=== PATIENT | female | born 1980 | race Caucasian/White ===

== ENCOUNTER 2016-10-18 08:08 | Day surgery (SDC) | payer MEDICAID ==
[2016-10-18] MEDS ORDERED: HYDROmorphone 2 MG/ML SDV IVPUSH ONE ×2 (08:36→09:49)
[2016-10-18] MEDS ORDERED: Ondansetron 4 MG/2 ML SDV IVPUSH ONE (08:36)
[2016-10-18] MEDS ORDERED: Sodium Chloride 0.9% 1,000 ML IV ONE (08:36)
[2016-10-18] MEDS ORDERED: Pantoprazole 40 MG in Sodium Chloride 0.9% 100 ML IV ONE (08:37)
--- NOTE | 2016-10-18 08:41 | EDM.PDOC ---
ED HPI GENERAL MEDICAL PROBLEM - General Stated Complaint: STOMACH PAIN Time Seen by Provider: 10/18/16 08:08 Source of Information: Reports: Patient History Limitations: Reports: Other (abd. pain) - History of Present Illness INITIAL COMMENTS - FREE TEXT/NARRATIVE: 36 years old w f -s/p hysterectomy-came to the ed due to N/V and right upper abd.pain in the past 3 days. Her urine looks like "beer", dark. No trauma. No dizziness or light headedness. Pt had several episodes like that in the past, drinks ETOH seldom. Last ETOH ago a few days ago. No other acute medical issues. Onset: Unknown/Unsure Onset Date: 10/15/16 Onset Time: 07:00 Duration: Day(s):, Intermittent Location: Reports: Abdomen Quality: Reports: Ache, Burning, Dull Improves with: Reports: Rest Worsens with: Reports: Eating Associated Symptoms: Reports: Nausea/Vomiting abdominal & back Pain Score (Numeric/FACES): 6 - Related Data Allergies Allergy/AdvReac Type Severity Reaction Status Date / Time codeine Allergy Insomnia Verified 10/18/16 08:40 diphenhydramine HCl Allergy Agitation Verified 10/18/16 08:40 [From Benadryl] metoclopramide HCl Allergy Agitation Verified 10/18/16 08:40 [From Reglan] Penicillins Allergy Vomiting Verified 10/18/16 08:40 prochlorperazine edisylate Allergy Agitation Verified 10/18/16 08:40 [From Compazine] prochlorperazine maleate Allergy Agitation Verified 10/18/16 08:40 [From Compazine] Home Meds: Home Meds FLUoxetine HCl [Prozac] 40 mg PO DAILY 10/18/16 [History] Past Medical History - Past Health History Medical/Surgical History: Denies Medical/Surgical History - Past Surgical History Female Surgical History: Reports: Tubal Ligation Social & Family History - Tobacco Use Smoking Status *Q: Current Every Day Smoker Years of Tobacco use: 1 Packs/Tins Daily: 0.5 - Alcohol Use Days Per Week of Alcohol Use: 0 - Recreational Drug Use Recreational Drug Use: No ED ROS GENERAL - Review of Systems Review Of Systems: See Below Constitutional: Reports: No Symptoms HEENT: Reports: No Symptoms Respiratory: Reports: No Symptoms Cardiovascular: Reports: No Symptoms Endocrine: Reports: No Symptoms GI/Abdominal: Reports: Abdominal Pain (RUQ of abdomen) : Reports: Other (dark urine) Musculoskeletal: Reports: No Symptoms Skin: Reports: No Symptoms Neurological: Reports: No Symptoms Psychiatric: Reports: No Symptoms Hematologic/Lymphatic: Reports: No Symptoms Immunologic: Reports: No Symptoms ED EXAM, GI/ABD - Physical Exam Exam: See Below Exam Limited By: Physical Impairment General Appearance: Alert, WD/WN, Moderate Distress, Obese Eyes: Bilateral: Normal Appearance Ears: Normal External Exam Nose: Normal Inspection Throat/Mouth: Other (dry mucosal membrane) Head: Atraumatic, Normocephalic Neck: Normal Inspection, Supple, Non-Tender, Full Range of Motion Respiratory/Chest: No Respiratory Distress, Lungs Clear, Normal Breath Sounds Cardiovascular: Normal Peripheral Pulses, Regular Rate, Rhythm, No Edema GI/Abdominal Exam: Tender (RUQ of abdomen and epigastric, less so.) (Female) Exam: Deferred Rectal (Female) Exam: Deferred Back Exam: Normal Inspection, Full Range of Motion Extremities: Normal Inspection, Normal Range of Motion Neurological: Alert, Oriented, CN II-XII Intact, Normal Cognition, Normal Gait Psychiatric: Normal Affect, Normal Mood Skin Exam: Warm, Dry, Intact, Normal Color, No Rash Lymphatic: No Adenopathy Course - Vital Signs Text/Narrative:: 36 years old w f -s/p hysterectomy-came to the ed due to N/V and right upper abd.pain in the past 3 days. Her urine looks like "beer", dark. No trauma. No dizziness or light headedness. Pt had several episodes like that in the past, drinks ETOH seldom. Last ETOH ago a few days ago. No other acute medical issues. PE: RUQ abd. pain with N/V. Pain radiating to the back, dark colored urine for 3 days. Imaging: Limited US of abdomen: mild sludge in GB, official report is pending Labs: WBC and BMP, LFT were basically nl Impression: RUQ abd. pain, Dehydration, Gastritis. Tx: NS, Zofran, Dilaudid and protonix 40 mg i.v. (Pt stated, she is not allergic to Dilaudid) Consultation: Dr. Polo, Surgeon: Will arrange HIDA scan with RAD and will call back. Recommends to give pt pain and nausea meds and hydrate her well. Reexam: Improved, pt requested to gallbladder to be removed Plan: Cholecyst ectomy, Dr. Lerma took over the care, Last Recorded V/S: Last Vital Signs Temp 36.6 C 10/18/16 12:45 Pulse 57 L 10/18/16 12:45 Resp 16 10/18/16 13:30 BP 118/75 10/18/16 13:30 Pulse Ox 96 10/18/16 13:30 - Orders/Labs/Meds Orders: Active Orders 24 hr Category Date Time Status Patient Status [ADT] Routine ADT 10/18/16 10:52 Active Communication Order [RC] ASDIRECTED Care 10/18/16 11:13 Active Cooling Warming Measures [RC] ASDIRECTED Care 10/18/16 11:13 Active Notify Provider [RC] PRN Care 10/18/16 11:13 Active Oxygen Therapy [RC] ASDIRECTED Care 10/18/16 11:13 Active Patient to Empty Bladder [RC] ASDIRECTED Care 10/18/16 10:52 Active Ready for Discharge [RC] PER UNIT ROUTINE Care 10/18/16 12:42 Active Verify Patient Consent Obtain [RC] ASDIRECTED Care 10/18/16 10:52 Active Vital Signs [RC] PER UNIT ROUTINE Care 10/18/16 11:13 Active Nothing Per Oral Diet [DIET] Diet 10/18/16 Lunch Ordered Abdomen Ltd [US] Stat Exams 10/18/16 08:34 Taken HCG QUALITATIVE,URINE [URCHEM] Stat Lab 10/18/16 10:52 Uncollected Albuterol [Proventil Neb Soln] Med 10/18/16 11:13 Active 2.5 mg NEB ONETIME PRN HYDROmorphone [Dilaudid] Med 10/18/16 11:13 Active 0.2 mg IV Q10M PRN HYDROmorphone [Dilaudid] Med 10/18/16 11:13 Active 0.2 mg IVPUSH Q10M PRN Lactated Ringers [Ringers, Lactated] 1,000 ml Med 10/18/16 11:00 Active IV ASDIRECTED Lactated Ringers [Ringers, Lactated] 1,000 ml Med 10/18/16 11:15 Active IV ASDIRECTED Sodium Chloride 0.9% [Normal Saline] 1,000 ml Med 10/18/16 10:15 Active IV ASDIRECTED Sodium Chloride 0.9% [Saline Flush] Med 10/18/16 10:52 Active 10 ml FLUSH ASDIRECTED PRN fentaNYL [Sublimaze] Med 10/18/16 11:13 Active 50 mcg IVPUSH Q5M PRN Peripheral IV Insertion Adult [OM.PC] Routine Oth 10/18/16 10:52 Ordered Sequential Compression Device [OM.PC] Routine Oth 10/18/16 10:52 Ordered Resuscitation Status Routine Resus Stat 10/18/16 10:52 Ordered Medication Orders Albuterol (Proventil Neb Soln) 2.5 mg NEB ONETIME PRN PRN Reason: Wheezing Fentanyl (Sublimaze) 50 mcg IVPUSH Q5M PRN PRN Reason: Pain (severe 7-10) Hydromorphone HCl (Dilaudid) 0.2 mg IVPUSH Q10M PRN PRN Reason: Pain (moderate 4-6) Hydromorphone HCl (Dilaudid) 0.2 mg IV Q10M PRN PRN Reason: Pain (severe 7-10) Last Admin: 10/18/16 13:05 Dose: 0.2 mg Sodium Chloride (Normal Saline) 1,000 mls @ 999 mls/hr IV ASDIRECTED CLAUDETTE Last Admin: 10/18/16 10:38 Dose: 999 mls/hr Lactated Ringer's (Ringers, Lactated) 1,000 mls @ 125 mls/hr IV ASDIRECTED CLAUDETTE Lactated Ringer's (Ringers, Lactated) 1,000 mls @ 0 mls/hr IV ASDIRECTED CLAUDETTE PRN Reason: KVO Sodium Chloride (Saline Flush) 10 ml FLUSH ASDIRECTED PRN PRN Reason: Keep Vein Open Labs: Laboratory Tests 10/18/16 10/18/16 10/18/16 Range/Units 08:36 08:36 08:36 WBC 7.9 (4.5-12.0) X10-3/uL RBC 5.19 (3.23-5.20) x10(6)uL Hgb 14.7 (11.5-15.5) g/dL Hct 44.3 (30.0-51.3) % MCV 85.4 (80-96) fL MCH 28.2 (27.7-33.6) pg MCHC 33.1 (32.2-35.4) g/dL RDW 12.6 (11.5-15.5) % Plt Count 300 (125-369) X10(3)uL MPV 8.5 (7.4-10.4) fL Neut % (Auto) 57.3 (46-82) % Lymph % (Auto) 33.3 (13-37) % Evangeline % (Auto) 5.8 (4-12) % Eos % (Auto) 3 (1.0-5.0) % Baso % (Auto) 1 (0-2) % Neut # (Auto) 4.5 (1.6-8.3) # Lymph # (Auto) 2.6 (0.6-5.0) # Evangeline # (Auto) 0.5 (0.0-1.3) # Eos # (Auto) 0.2 (0.0-0.8) # Baso # (Auto) 0.1 (0.0-0.2) # Sodium 138 (135-145) mmol/L Potassium 3.6 (3.5-5.3) mmol/L Chloride 103 (100-110) mmol/L Carbon Dioxide 29 (23-29) mmol/L BUN 13 (5-20) mg/dL Creatinine 0.8 (0.6-1.3) mg/dL Est Cr Clr Drug Dosing 85.56 mL/min Estimated GFR (MDRD) > 60 (>60) BUN/Creatinine Ratio 16.3 (9-20) Glucose 79 L (80-116) mg/dL Calcium 9.2 (8.6-10.2) mg/dL Total Bilirubin 0.4 (0.1-1.3) mg/dL Direct Bilirubin 0.1 (0.1-0.2) mg/dL AST 19 (5-27) IU/L ALT 15 (14-26) IU/L Alkaline Phosphatase 55 L (56-112) IU/L Total Protein 7.8 (6.0-8.0) g/dL Albumin 4.4 (3.5-5.2) g/dL Amylase 20 L (28-100) U/L Urine Color (YELLOW) Urine Appearance (CLEAR) Urine pH (5.0-6.5) Ur Specific [place] (1.010-1.025) Urine Protein (NEGATIVE) mg/dL Urine Glucose (UA) (NEGATIVE) mg/dL Urine Ketones (NEGATIVE) mg/dL Urine Occult Blood (NEGATIVE) Urine Nitrite (NEGATIVE) Urine Bilirubin (NEGATIVE) Urine Urobilinogen (NEGATIVE) mg/dL Ur Leukocyte Esterase (NEGATIVE) Urine RBC (0) Urine WBC (0) Ur Squamous Epith Cells (NS,R,O) Urine Bacteria (NS) Ethyl Alcohol (<0.01) % 10/18/16 10/18/16 Range/Units 08:36 08:45 WBC (4.5-12.0) X10-3/uL RBC (3.23-5.20) x10(6)uL Hgb (11.5-15.5) g/dL Hct (30.0-51.3) % MCV (80-96) fL MCH (27.7-33.6) pg MCHC (32.2-35.4) g/dL RDW (11.5-15.5) % Plt Count (125-369) X10(3)uL MPV (7.4-10.4) fL Neut % (Auto) (46-82) % Lymph % (Auto) (13-37) % Evangeline % (Auto) (4-12) % Eos % (Auto) (1.0-5.0) % Baso % (Auto) (0-2) % Neut # (Auto) (1.6-8.3) # Lymph # (Auto) (0.6-5.0) # Evangeline # (Auto) (0.0-1.3) # Eos # (Auto) (0.0-0.8) # Baso # (Auto) (0.0-0.2) # Sodium (135-145) mmol/L Potassium (3.5-5.3) mmol/L Chloride (100-110) mmol/L Carbon Dioxide (23-29) mmol/L BUN (5-20) mg/dL Creatinine (0.6-1.3) mg/dL Est Cr Clr Drug Dosing mL/min Estimated GFR (MDRD) (>60) BUN/Creatinine Ratio (9-20) Glucose (80-116) mg/dL Calcium (8.6-10.2) mg/dL Total Bilirubin (0.1-1.3) mg/dL Direct Bilirubin (0.1-0.2) mg/dL AST (5-27) IU/L ALT (14-26) IU/L Alkaline Phosphatase (56-112) IU/L Total Protein (6.0-8.0) g/dL Albumin (3.5-5.2) g/dL Amylase (28-100) U/L Urine Color Yellow (YELLOW) Urine Appearance Clear (CLEAR) Urine pH 6.5 (5.0-6.5) Ur Specific [place] 1.015 (1.010-1.025) Urine Protein Negative (NEGATIVE) mg/dL Urine Glucose (UA) Normal (NEGATIVE) mg/dL Urine Ketones Negative (NEGATIVE) mg/dL Urine Occult Blood Trace (NEGATIVE) Urine Nitrite Negative (NEGATIVE) Urine Bilirubin Negative (NEGATIVE) Urine Urobilinogen 4 H (NEGATIVE) mg/dL Ur Leukocyte Esterase Negative (NEGATIVE) Urine RBC 0-5 (0) Urine WBC 0-5 (0) Ur Squamous Epith Cells Moderate H (NS,R,O) Urine Bacteria Few H (NS) Ethyl Alcohol < 0.01 (<0.01) % Meds: Medications Generic Name Dose Route Start Last Admin Trade Name Freq PRN Reason Stop Dose Admin Albuterol 2.5 mg 10/18/16 11:13 Proventil Neb Soln NEB ONETIME PRN Wheezing Fentanyl 50 mcg 10/18/16 11:13 Sublimaze IVPUSH Q5M PRN Pain (severe 7-10) Hydromorphone HCl 0.2 mg 10/18/16 11:13 Dilaudid IVPUSH Q10M PRN Pain (moderate 4-6) Hydromorphone HCl 0.2 mg 10/18/16 11:13 10/18/16 13:05 Dilaudid IV 0.2 mg Q10M PRN Administration Pain (severe 7-10) Sodium Chloride 1,000 mls @ 999 mls/hr 10/18/16 10:15 10/18/16 10:38 Normal Saline IV 999 mls/hr ASDIRECTED CLAUDETTE Administration Lactated Ringer's 1,000 mls @ 125 mls/hr 10/18/16 11:00 Ringers, Lactated IV ASDIRECTED CLAUDETTE Lactated Ringer's 1,000 mls @ 0 mls/hr 10/18/16 11:15 Ringers, Lactated IV ASDIRECTED CLAUDETTE KVO Sodium Chloride 10 ml 10/18/16 10:52 Saline Flush FLUSH ASDIRECTED PRN Keep Vein Open Discontinued Medications Generic Name Dose Route Start Last Admin Trade Name Sergio PRN Reason Stop Dose Admin Hydrocodone Bitart/Acetaminophen 1 tab 10/18/16 13:44 [place] 325-5 Mg PO 10/18/16 13:45 ONETIME ONE Hydromorphone HCl 0.5 mg 10/18/16 08:36 10/18/16 09:06 Dilaudid IVPUSH 10/18/16 08:37 0.5 mg ONETIME ONE Administration Hydromorphone HCl 1 mg 10/18/16 09:49 10/18/16 09:56 Dilaudid IVPUSH 10/18/16 09:50 1 mg ONETIME ONE Administration Sodium Chloride 1,000 mls @ 999 mls/hr 10/18/16 08:36 10/18/16 09:04 Normal Saline IV 10/18/16 09:36 999 mls/hr .BOLUS ONE Administration Pantoprazole Sodium 40 mg/ 100 mls @ 200 mls/hr 10/18/16 08:37 10/18/16 09:12 Sodium Chloride IV 10/18/16 09:06 200 mls/hr .BOLUS ONE Administration Ondansetron HCl 8 mg 10/18/16 08:36 10/18/16 09:09 Zofran IVPUSH 10/18/16 08:37 8 mg ONETIME ONE Administration Departure - Departure Time of Disposition: 11:00 Disposition: Admitted As Inpatient 68 Condition: Fair Clinical Impression: Abdominal pain Qualifiers: Abdominal location: upper abdomen, unspecified Qualified Code(s): R10.10 - Upper abdominal pain, unspecified - Discharge Information - My Orders Last 24 Hours: My Active Orders 10/18/16 08:34 [employer] [US] Stat 10/18/16 10:15 Sodium Chloride 0.9% [Normal Saline] 1,000 ml IV ASDIRECTED - Assessment/Plan Last 24 Hours: My Active Orders 10/18/16 08:34 [employer] [[place]] Stat 10/18/16 10:15 Sodium Chloride 0.9% [Normal Saline] 1,000 ml IV ASDIRECTED
[2016-10-18] MEDS ORDERED: Sodium Chloride 0.9% 1,000 ML IV SCH (10:15)
[2016-10-18] MEDS ORDERED: Sodium Chloride 0.9% 10 ML Syringe FLUSH PRN (10:52)
[2016-10-18] MEDS ORDERED: Lactated Ringers 1,000 ML IV SCH ×2 (11:00→11:15)
--- NOTE | 2016-10-18 11:11 | PREOP ---
ADMISSION DATE: 10/18/2016 HISTORY: This is a 36-year-old female who was seen in the emergency room for evaluation of abdominal pain. She has had severe right upper quadrant abdominal pain since yesterday. She also has similar episode couple of months ago and was found to have gallstones on ultrasound. The pain symptoms resolved at that time and did not have surgery. She has been nauseated but no vomiting. She has not had any fever, sweats, or chills. Ultrasound was obtained which shows small stones and sludge and positive Han sign. No wall thickening or pericholecystic fluid is seen. LABORATORY DATA: Evaluation revealed a normal CBC. Liver function tests were normal. Urinalysis was normal. PAST MEDICAL HISTORY: Anxiety, robotic-assisted hysterectomy, and section. MEDICATIONS: Reviewed. MEDICAL ALLERGIES: Reviewed. REVIEW OF SYSTEMS: The patient denies chest pain, shortness of breath, or respiratory difficulties. Denies dysphagia but has been nauseated and poor appetite the last couple of days. Bowels have been normal. No urinary symptoms. Denies fever, sweats, or chills. PHYSICAL EXAMINATION: GENERAL: Reveals a pleasant lady, in no acute distress as long as she is lying still. VITAL SIGNS: Her vitals are reviewed. She is afebrile. HEENT: Her sclerae are white. Skin is not jaundiced. LUNGS: Clear. Respirations are nonlabored. HEART: Regular rate and rhythm without murmur. ABDOMEN: Has right upper quadrant tenderness with guarding. Recent incisions are well healed. No hernias are palpable. ASSESSMENT: Symptomatic cholelithiasis and cholecystitis. PLAN: Findings were reviewed with the patient. We recommend proceeding with laparoscopic cholecystectomy. This will be done today and anticipate doing this as an outpatient procedure. Risks and complications of bleeding, infection, anesthesia, bile leakage of bile duct injury, and needing to convert to an open procedure were discussed and an informed consent obtained. /[id number] MARLEN/BENITO
[2016-10-18] MEDS ORDERED: fentaNYL 100 MCG/2 ML SDV IVPUSH PRN (11:13)
[2016-10-18] MEDS ORDERED: HYDROmorphone 2 MG/ML SDV IVPUSH PRN (11:13)
[2016-10-18] MEDS ORDERED: HYDROmorphone 2 MG/ML SDV IV PRN (11:13)
[2016-10-18] MEDS ORDERED: Albuterol 0.083% 2.5 MG/3 ML Neb Soln NEB PRN (11:13)
[2016-10-18] MEDS ORDERED: fentaNYL 100 MCG/2 ML SDV IV ONE (11:45)
[2016-10-18] MEDS ORDERED: Lactated Ringers 1,000 ML IV ONE (11:45)
[2016-10-18] MEDS ORDERED: Dexamethasone 4 MG/ML 5 ML MDV IVPUSH ONE (11:45)
[2016-10-18] MEDS ORDERED: Rocuronium 50 MG/5 ML Vial IV ONE (11:45)
[2016-10-18] MEDS ORDERED: Scopolamine 1.5 MG Transdermal Patch TOP ONE (11:45)
[2016-10-18] MEDS ORDERED: HYDROmorphone 2 MG/ML SDV IV ONE (11:45)
[2016-10-18] MEDS ORDERED: Propofol 200 MG/20 ML SDV IV ONE (11:45)
[2016-10-18] MEDS ORDERED: Ketorolac 30 MG/ML SDV IVPUSH ONE (11:45)
[2016-10-18] MEDS ORDERED: Succinylcholine/Normal Saline 200 MG/10 ML Syringe IV ONE (11:45)
[2016-10-18] MEDS ORDERED: Midazolam 1 MG/ML 2 ML SDV IV ONE (11:45)
[2016-10-18] MEDS ORDERED: Neostigmine Methylsulfate 1 MG/ML 5 ML Syringe IV ONE (11:45)
--- NOTE | 2016-10-18 12:39 | PCM.OPNOTE ---
- General Post-Op/Procedure Note Date of Surgery/Procedure: 10/18/16 Operative Procedure(s): Lap Aiyana Pre Op Diagnosis: Cholecystitis and Cholelithiasis Post-Op Diagnosis: Same Anesthesia Technique: General ET Tube Primary Surgeon: Faraz Casas Anesthesia Provider: Leoncio Hodges Pathology: Gallbladder EBL in mLs: 5 Complications: None Condition: Good
[2016-10-18] MEDS ORDERED: Acetaminophen/HYDROcodone 325-5 MG Tab PO ONE (13:44)
--- NOTE | 2016-10-18 14:03 | OR ---
DATE OF OPERATION: 10/18/2016 SURGEON: Faraz Casas MD PREOPERATIVE DIAGNOSIS: Cholecystitis and cholelithiasis. POSTOPERATIVE DIAGNOSIS: Cholecystitis and cholelithiasis. PROCEDURE: Laparoscopic cholecystectomy. ETHICS OFFICER: None. ANESTHESIA: General. PROCEDURE: The patient was brought to the operating room, where general endotracheal anesthesia was administered. The abdomen was prepped with ChloraPrep and draped sterilely. An infraumbilical incision was made and extended into the peritoneal cavity without difficulty. The Elisa cannulator was introduced and a pneumoperitoneum obtained. The remaining three 5-mm ports were placed in the usual positions. General exploration revealed the surface of the liver, stomach, omentum, bowel, and peritoneal surfaces to be normal. The gallbladder was grasped and retracted cephalad. The cystic artery and cystic duct were clearly dissected free. Minimal oozing occurred during the dissection. The cystic artery was doubly clipped proximally and once distally and then transected. The anatomy of the cystic duct was reconfirmed and could be seen entering the gallbladder and extending towards the common bile duct. This was doubly clipped proximally and once distally and then transected. The gallbladder was then removed from the bed of the liver without difficulty. No bile leakage occurred. The gallbladder was brought out through the umbilical incision. The right upper quadrant was irrigated and inspected, return was clear, and hemostasis was assured. Ports were removed under direct vision and remained hemostatic. The umbilical fascia was closed with [id number] #0 Vicryl. The skin was closed with #4-0 Vicryl subcuticular sutures. Benzoin and Steri-Strips were placed and Band-Aids applied. The patient tolerated the procedure well. Estimated blood loss is 5 cc. Patient returned to postanesthesia in stable condition. ESTIMATED BLOOD LOSS: 5 mL and. /[id number] MARLEN/BENITO
[2016-10-18 15:19] VITALS: BP 96/59
--- NOTE | 2016-10-25 11:11 | US ---
INDICATION: Right upper quadrant abdominal pain with nausea and vomiting. ULTRASOUND RIGHT UPPER QUADRANT/GALLBLADDER: Multiple ultrasonic images were obtained and revealed the common bile duct to be normal in caliber at 4.5 mm. Gallbladder measured 8 x 3.4 x 3.8 cm, with a positive ultrasonic Han sign and some gravel present within the gallbladder - cholelithiasis. The possibility of cholecystitis would be a consideration, therefore. The pancreas had a normal appearance. The liver had an appearance suggesting geographic fatty infiltration with some areas of relatively increased echogenicity. The right kidney was not adequately visualized for diagnosis. The IVC was phasic. The aorta was not evaluated. IMPRESSION: 1. Minimal cholelithiasis with positive ultrasonic Han sign. The gallbladder is not enlarged. However, findings should be correlated clinically as acute cholecystitis cannot be excluded. 2. Possible geographic fatty infiltration of the liver. MTDD
== END 2016-10-18 15:10 | disposition home or self-care (01) ==
LOC: FB.ED 08:08 → FB.SDS 11:01
PROVIDERS: ATTEND Surgery
DX: K81.1 Chronic cholecystitis (principal); F41.9 Anxiety disorder, unspecified; Z88.0 Allergy status to penicillin; Z88.8 Allergy status to other drugs, medicaments and biological substances; Z79.899 Other long term (current) drug therapy; Z90.710 Acquired absence of both cervix and uterus; Z98.890 Other specified postprocedural states; Z98.51 Tubal ligation status; F17.210 Nicotine dependence, cigarettes, uncomplicated
CPT/HCPCS: 00790; 36415; 47562; 76705; 80048; 80076; 81001; 82150; 85025; 88304; 96365; 96366; 96375; 96376; 99284; A9270; C9113; G0480; J1100; J1170; J1885; J2250; J2405; J2704; J3010; J7030; J7040; J7120